=== PATIENT | female | born 1935 | race Caucasian/White ===

== ENCOUNTER 2017-08-23 07:06 | Day surgery (SDC) | payer MEDICARE, OTHER ==
[2017-08-23] MEDS: BUPIVACAINE 0.25% (MPF) 30 ML INJ INJ (08:59)
[2017-08-23] MEDS ORDERED: MEPERIDINE 25 MG INJ IV (09:00)
[2017-08-23] MEDS ORDERED: LIDOCAINE 2% (SDV) 5 ML INJ (09:00)
[2017-08-23] MEDS ORDERED: ETOMIDATE 20 MG INJ (09:00)
[2017-08-23] MEDS ORDERED: PROCHLORPERAZINE 10 MG INJ IV (09:00)
[2017-08-23] MEDS ORDERED: HYDROmorphONE (0.2 MG/ML) 10ML SYG IV ×2 (09:00)
[2017-08-23] MEDS ORDERED: PROPOFOL 20 ML (09:13)
[2017-08-23] MEDS ORDERED: DEXAMETHASONE 4 MG/ML 1 ML INJ (09:13)
[2017-08-23] MEDS ORDERED: ONDANSETRON 4 MG INJ (09:13)
[2017-08-23] MEDS ORDERED: CEFAZOLIN 1 GM INJ (09:13)
[2017-08-23] MEDS ORDERED: FENTAnyl 50 MCG/ML VIAL (09:14)
[2017-08-23] MEDS ORDERED: OXYCODONE/ACETAMINOPHEN (5/325) TAB PO ×2 (09:30)
[2017-08-23] MEDS ORDERED: morphine 2 MG INJ IV (09:30)
[2017-08-23] MEDS ORDERED: ONDANSETRON 4 MG INJ IV (09:30)
[2017-08-23] MEDS: FENTAnyl 50 MCG/ML VIAL IV ×3 (10:09→10:21)
[2017-08-23] MEDS: ONDANSETRON 4 MG INJ IV (10:12)
[2017-08-23] MEDS: DIPHENHYDRAMINE 50 MG INJ IV (10:24)
[2017-08-23] MEDS: hydrALAzine 20 MG INJ IV ×2 (10:34→10:40)
[2017-08-23] MEDS: LABETALOL HCL 20MG INJ IV (10:45)
[2017-08-23] MEDS: OXYCODONE/ACETAMINOPHEN (5/325) TAB PO (11:24)
[2017-08-23] MEDS ORDERED: BUPIVACAINE 0.25% (MPF) 30 ML INJ (13:05)
== END 2017-08-23 12:52 | disposition home or self-care (01) ==
LOC: SDS 07:06
DX: C50.812 Malignant neoplasm of overlapping sites of left female breast (principal); I10 Essential (primary) hypertension; I48.0 Paroxysmal atrial fibrillation; J44.9 Chronic obstructive pulmonary disease, unspecified; E78.5 Hyperlipidemia, unspecified; G35 Multiple sclerosis; Z86.73 Personal history of transient ischemic attack (TIA), and cerebral infarction without residual deficits; Z85.038 Personal history of other malignant neoplasm of large intestine
CPT/HCPCS: 19120; 71045; 88307

== ENCOUNTER 2017-11-22 06:43 | Inpatient (IN) | payer MEDICARE, OTHER ==
[2017-11-22] MEDS ORDERED: NEOSTIGMINE 3 MG/3 ML SYRINGE (08:11)
[2017-11-22] MEDS ORDERED: MIDAZOLAM 1 MG/ML 2 ML INJ (08:11)
[2017-11-22] MEDS ORDERED: GLYCOPYRROLATE 0.4 MG INJ (08:11)
[2017-11-22] MEDS ORDERED: PROPOFOL 20 ML (08:11)
[2017-11-22] MEDS ORDERED: ROCURONIUM 50 MG INJ (08:11)
[2017-11-22] MEDS ORDERED: FENTAnyl 50 MCG/ML VIAL ×2 (08:11→11:04)
[2017-11-22] MEDS ORDERED: LIDOCAINE 2% (SDV) 5 ML INJ (08:11)
[2017-11-22] MEDS ORDERED: ONDANSETRON 4 MG INJ (08:12)
[2017-11-22] MEDS ORDERED: DEXAMETHASONE 4 MG/ML 1 ML INJ (08:12)
[2017-11-22] MEDS ORDERED: LABETALOL HCL 20MG INJ (09:34)
[2017-11-22] MEDS ORDERED: SUGAMMADEX SODIUM 200 MG/2 ML VIAL IV (10:17)
[2017-11-22] MEDS ORDERED: DIPHENHYDRAMINE 50 MG INJ (10:33)
[2017-11-22] MEDS ORDERED: HYDROmorphONE 1 MG/5 ML IV SYRINGE IV ×2 (10:34→11:00)
[2017-11-22] MEDS ORDERED: ONDANSETRON 4 MG INJ IV (11:00)
[2017-11-22] MEDS ORDERED: LABETALOL HCL 20MG INJ IV (11:00)
[2017-11-22] MEDS ORDERED: morphine (1 MG/ML) 10ML SYRINGE IV ×2 (11:00)
[2017-11-22] MEDS ORDERED: MEPERIDINE 25 MG INJ IV (11:00)
[2017-11-22] MEDS ORDERED: KETOROLAC 15 MG INJ IV (11:00)
[2017-11-22] MEDS ORDERED: hydrALAzine 20 MG INJ IV (11:00)
[2017-11-22] MEDS ORDERED: METOCLOPRAMIDE 10 MG INJ IV (11:00)
[2017-11-22] MEDS ORDERED: OXYCODONE/ACETAMINOPHEN (5/325) TAB PO ×2 (11:00)
[2017-11-22] MEDS ORDERED: FENTAnyl 50 MCG/ML VIAL IV (11:00)
[2017-11-22] MEDS: DIPHENHYDRAMINE 50 MG INJ IV (11:14)
[2017-11-22] MEDS: HYDROmorphONE 1 MG/5 ML IV SYRINGE IV (11:14)
[2017-11-22] MEDS: FENTAnyl 50 MCG/ML VIAL IV (11:15)
[2017-11-22] MEDS: CEFAZOLIN 1 GM/50 ML (PMX) 50 ML IVPB ×2 (13:47→22:33)
[2017-11-22] MEDS: morphine 2 MG INJ IV ×2 (16:19→18:59)
[2017-11-22] MEDS: METOCLOPRAMIDE 10 MG TAB PO (17:35)
[2017-11-22] MEDS: ZOLPIDEM 5 MG TAB PO (22:31)
[2017-11-23] MEDS: morphine 2 MG INJ IV ×3 (03:02→08:14)
[2017-11-23] MEDS: HYDROCHLOROTHIAZIDE 25 MG TAB PO ×3 (04:29→20:41)
[2017-11-23] MEDS: PANTOPRAZOLE 40 MG INJ IV (05:34)
[2017-11-23] MEDS: CEFAZOLIN 1 GM/50 ML (PMX) 50 ML IVPB (05:35)
[2017-11-23] MEDS: METOCLOPRAMIDE 10 MG TAB PO ×4 (06:22→17:47)
[2017-11-23 06:30] LABS: ADD MAN DIFF? NO
[2017-11-23 06:41] LABS: BASOPHILS % 0.2 % (0.0-2.0); LYMPHOCYTES # 1.8 10^3/ul (0.8-2.9); LYMPHOCYTES % 11.1 % (15.0-51.0); MEAN CORPUSCULAR HEMOGLOBIN 28.3 pg (29.0-33.0); MEAN CORPUSCULAR HGB CONC 32.5 g/dl (32.0-37.0); MEAN CORPUSCULAR VOLUME 87.1 fl (82.0-101.0); MEAN PLATELET VOLUME 9.9 fl (7.4-10.4); MONOCYTE # 0.9 10^3/ul (0.3-0.9); MONOCYTES % 5.5 % (0.0-11.0); NEUTROPHIL # 13.4 10^3/ul (1.6-7.5); NEUTROPHILS % 82.8 % (39.0-77.0); PLATELET COUNT 250 10^3/UL (140-415); RED BLOOD COUNT 4.59 10^6/ul (4.20-5.40); RED CELL DISTRIBUTION WIDTH 13.5 % (11.5-14.5)
[2017-11-23 06:41] LABS: WHITE BLOOD COUNT 16.2 10^3/ul (4.8-10.8)
[2017-11-23] MEDS: hydrALAzine 20 MG INJ IV (06:55)
[2017-11-23 07:16] LABS: ALANINE AMINOTRANSFERASE 26 IU/L (13-69); ALKALINE PHOSPHATASE 71 IU/L (42-121); ANION GAP 15 (8-16); ASPARTATE AMINO TRANSFERASE 28 IU/L (15-46); BILIRUBIN,INDIRECT 0.6 mg/dl (0-1.1); BILIRUBIN,TOTAL 0.6 mg/dl (0.2-1.3); BLOOD UREA NITROGEN 14 mg/dl (7-20); CALCIUM 8.9 mg/dl (8.4-10.2); CARBON DIOXIDE 23 mmol/L (21-31); CHLORIDE 105 mmol/L (97-110); CREATININE 0.65 mg/dl (0.44-1.00); GLUCOSE 119 mg/dl (70-220); POTASSIUM 4.4 mmol/L (3.5-5.1); SODIUM 139 mmol/L (135-144)
[2017-11-23 07:17] LABS: ALBUMIN 3.9 g/dl (3.3-4.9); ALBUMIN/GLOBULIN RATIO 1.08; TOTAL PROTEIN 7.5 g/dl (6.1-8.1)
[2017-11-24] MEDS: SOD CHLORIDE 0.9% 1,000 ML IV (00:50)
[2017-11-24] MEDS: METOPROLOL 25 MG TAB PO ×3 (00:50→22:52)
[2017-11-24] MEDS: ZOLPIDEM 5 MG TAB PO (00:50)
[2017-11-24 05:29] LABS: ADD MAN DIFF? NO
[2017-11-24 05:36] LABS: BASOPHIL # 0.1 10^3/ul (0.0-0.1); BASOPHILS % 0.5 % (0.0-2.0); EOSINOPHILS % 0.4 % (0.0-7.0); HEMATOCRIT 37.3 % (37.0-47.0); HEMOGLOBIN 12.2 g/dl (12.0-16.0); LYMPHOCYTES # 1.6 10^3/ul (0.8-2.9); LYMPHOCYTES % 14.8 % (15.0-51.0); MEAN CORPUSCULAR HGB CONC 32.7 g/dl (32.0-37.0); MEAN CORPUSCULAR VOLUME 85.7 fl (82.0-101.0); MEAN PLATELET VOLUME 10.2 fl (7.4-10.4); MONOCYTE # 0.7 10^3/ul (0.3-0.9); MONOCYTES % 6.4 % (0.0-11.0); NEUTROPHIL # 8.6 10^3/ul (1.6-7.5); NEUTROPHILS % 77.5 % (39.0-77.0); PLATELET COUNT 238 10^3/UL (140-415); RED BLOOD COUNT 4.35 10^6/ul (4.20-5.40); RED CELL DISTRIBUTION WIDTH 13.9 % (11.5-14.5)
[2017-11-24 05:36] LABS: WHITE BLOOD COUNT 11.1 10^3/ul (4.8-10.8)
[2017-11-24] MEDS: PANTOPRAZOLE 40 MG INJ IV (05:41)
[2017-11-24 06:02] LABS: MAGNESIUM 1.8 mg/dl (1.7-2.5)
[2017-11-24] MEDS: METOCLOPRAMIDE 10 MG TAB PO ×3 (08:57→17:35)
[2017-11-24] MEDS: HYDROCHLOROTHIAZIDE 25 MG TAB PO ×2 (08:57→22:52)
[2017-11-24] MEDS: ONDANSETRON 4 MG INJ IV (13:58)
[2017-11-24] MEDS: LORAZEPAM 1 MG TAB PO (14:59)
[2017-11-24] MEDS: HYDROCODONE/APAP (10/325) TAB PO (16:51)
[2017-11-24] MEDS: HYDROCODONE/APAP (5/325) TAB PO (16:59)
[2017-11-25] MEDS: PANTOPRAZOLE 40 MG INJ IV (05:43)
[2017-11-25 05:47] LABS: ADD MAN DIFF? NO; BASOPHILS % 0.8 % (0.0-2.0); EOSINOPHILS # 0.1 10^3/ul (0.0-0.5); EOSINOPHILS % 2.3 % (0.0-7.0); HEMATOCRIT 38.2 % (37.0-47.0); HEMOGLOBIN 12.7 g/dl (12.0-16.0); LYMPHOCYTES # 1.5 10^3/ul (0.8-2.9); LYMPHOCYTES % 31.2 % (15.0-51.0); MEAN CORPUSCULAR HEMOGLOBIN 28.2 pg (29.0-33.0); MEAN CORPUSCULAR HGB CONC 33.2 g/dl (32.0-37.0); MEAN CORPUSCULAR VOLUME 84.7 fl (82.0-101.0); MEAN PLATELET VOLUME 10.3 fl (7.4-10.4); MONOCYTE # 0.7 10^3/ul (0.3-0.9); MONOCYTES % 13.7 % (0.0-11.0); NEUTROPHIL # 2.5 10^3/ul (1.6-7.5); NEUTROPHILS % 51.8 % (39.0-77.0); PLATELET COUNT 226 10^3/UL (140-415); RED BLOOD COUNT 4.51 10^6/ul (4.20-5.40); RED CELL DISTRIBUTION WIDTH 13.2 % (11.5-14.5)
[2017-11-25 05:47] LABS: WHITE BLOOD COUNT 4.8 10^3/ul (4.8-10.8)
[2017-11-25 06:25] LABS: ALANINE AMINOTRANSFERASE 19 IU/L (13-69); ALBUMIN 3.5 g/dl (3.3-4.9); ALBUMIN/GLOBULIN RATIO 1.09; ALKALINE PHOSPHATASE 56 IU/L (42-121); ANION GAP 11 (8-16); ASPARTATE AMINO TRANSFERASE 31 IU/L (15-46); BILIRUBIN,INDIRECT 0.7 mg/dl (0-1.1); BILIRUBIN,TOTAL 0.7 mg/dl (0.2-1.3); BLOOD UREA NITROGEN 15 mg/dl (7-20); CALCIUM 8.7 mg/dl (8.4-10.2); CARBON DIOXIDE 30 mmol/L (21-31); CHLORIDE 96 mmol/L (97-110); CREATININE 0.67 mg/dl (0.44-1.00); GLUCOSE 97 mg/dl (70-220); POTASSIUM 3.1 mmol/L (3.5-5.1); SODIUM 134 mmol/L (135-144); TOTAL PROTEIN 6.7 g/dl (6.1-8.1)
[2017-11-25 06:38] LABS: INR 1.07; PT RATIO 1.1
[2017-11-25 06:39] LABS: PARTIAL THROMBOPLASTIN TIME 33.7 Sec (25.0-35.0)
[2017-11-25] MEDS: HYDROCHLOROTHIAZIDE 25 MG TAB PO ×2 (09:28→20:44)
[2017-11-25] MEDS: METOCLOPRAMIDE 10 MG TAB PO ×3 (09:28→17:35)
[2017-11-25] MEDS: METOPROLOL 25 MG TAB PO ×2 (09:28→20:44)
[2017-11-25] MEDS: POTASSIUM CHLORIDE (SR) 20 MEQ TAB PO (17:41)
[2017-11-25] MEDS: HYDROCODONE/APAP (10/325) TAB PO (20:44)
[2017-11-26] MEDS: PANTOPRAZOLE 40 MG INJ IV (05:11)
[2017-11-26 06:34] LABS: ADD MAN DIFF? NO
[2017-11-26 06:44] LABS: BASOPHILS % 0.6 % (0.0-2.0); EOSINOPHILS # 0.2 10^3/ul (0.0-0.5); EOSINOPHILS % 2.3 % (0.0-7.0); HEMATOCRIT 37.2 % (37.0-47.0); HEMOGLOBIN 12.6 g/dl (12.0-16.0); LYMPHOCYTES # 2.5 10^3/ul (0.8-2.9); LYMPHOCYTES % 37.7 % (15.0-51.0); MEAN CORPUSCULAR HEMOGLOBIN 28.5 pg (29.0-33.0); MEAN CORPUSCULAR HGB CONC 33.9 g/dl (32.0-37.0); MEAN CORPUSCULAR VOLUME 84.2 fl (82.0-101.0); MONOCYTE # 0.8 10^3/ul (0.3-0.9); MONOCYTES % 11.7 % (0.0-11.0); NEUTROPHIL # 3.1 10^3/ul (1.6-7.5); NEUTROPHILS % 47.4 % (39.0-77.0); PLATELET COUNT 255 10^3/UL (140-415); RED BLOOD COUNT 4.42 10^6/ul (4.20-5.40); RED CELL DISTRIBUTION WIDTH 13.2 % (11.5-14.5)
[2017-11-26 06:44] LABS: WHITE BLOOD COUNT 6.6 10^3/ul (4.8-10.8)
[2017-11-26 07:00] LABS: INR 1.09; PROTIME 14.3 Sec (11.9-14.9); PT RATIO 1.1
[2017-11-26 07:01] LABS: PARTIAL THROMBOPLASTIN TIME 30.1 Sec (25.0-35.0)
[2017-11-26 07:02] LABS: ALANINE AMINOTRANSFERASE 29 IU/L (13-69); ALBUMIN 3.4 g/dl (3.3-4.9); ALBUMIN/GLOBULIN RATIO 1.03; ALKALINE PHOSPHATASE 64 IU/L (42-121); ANION GAP 13 (8-16); ASPARTATE AMINO TRANSFERASE 29 IU/L (15-46); BILIRUBIN,INDIRECT 0.6 mg/dl (0-1.1); BILIRUBIN,TOTAL 0.6 mg/dl (0.2-1.3); BLOOD UREA NITROGEN 16 mg/dl (7-20); CALCIUM 8.5 mg/dl (8.4-10.2); CARBON DIOXIDE 27 mmol/L (21-31); CHLORIDE 95 mmol/L (97-110); CREATININE 0.74 mg/dl (0.44-1.00); GLUCOSE 97 mg/dl (70-220); POTASSIUM 3.6 mmol/L (3.5-5.1); SODIUM 131 mmol/L (135-144); TOTAL PROTEIN 6.7 g/dl (6.1-8.1)
[2017-11-26] MEDS: METOCLOPRAMIDE 10 MG TAB PO ×3 (08:39→16:52)
[2017-11-26] MEDS: METOPROLOL 25 MG TAB PO (08:40)
[2017-11-26] MEDS: HYDROCHLOROTHIAZIDE 25 MG TAB PO (08:41)
[2017-11-26] MEDS: SODIUM CHLORIDE 1 GM TAB PO (16:52)
== END 2017-11-26 20:00 | DRG 583 ==
LOC: REC 06:43 → PP2 11-24 08:50 → SDS 11-24 11:52 → PP2 11:45 → SDS 06:43 → PP2 11:45
PROC: 0HTU0ZZ Resection of Left Breast, Open Approach (ICD-10-PCS; principal; 2017-11-22 09:00)
DX: C50.112 Malignant neoplasm of central portion of left female breast (principal); G35 Multiple sclerosis; G89.18 Other acute postprocedural pain; R07.9 Chest pain, unspecified; R00.0 Tachycardia, unspecified; D72.829 Elevated white blood cell count, unspecified; E78.5 Hyperlipidemia, unspecified; I10 Essential (primary) hypertension; Z86.73 Personal history of transient ischemic attack (TIA), and cerebral infarction without residual deficits; Z87.891 Personal history of nicotine dependence; Z99.3 Dependence on wheelchair
CPT/HCPCS: 80053; 83735; 84443; 85025; 85610; 85730; 86850; 86900; 86901; 88307; 97163